=== PATIENT | female | born 1955 | race Caucasian/White ===

== ENCOUNTER 2020-01-03 22:16 | Emergency (ER) | payer MEDICARE, OTHER ==
[2020-01-03] MEDS ORDERED: Hydromorphone 1 mg/ml Ampule IV ONE (22:35)
[2020-01-03] MEDS ORDERED: Amidate 20 MG/10 ML IV STA (22:36)
[2020-01-03] MEDS ORDERED: Hydromorphone 1 mg/ml Ampule ONE (22:38)
[2020-01-03] MEDS ORDERED: Sodium Chloride 0.9% 1000 ML 1,000 ML ONE (22:41)
[2020-01-03] MEDS ORDERED: Sodium Chloride 0.9% 1000 ML 1,000 ML IV SCH (22:45)
[2020-01-03] MEDS ORDERED: Zofran 4 MG/2 ML VIAL IV ONE (22:57)
[2020-01-03] MEDS ORDERED: Zofran 4 MG/2 ML VIAL ONE (23:02)
--- NOTE | 2020-01-03 23:40 | ERPHSYRPT ---
- History of Present Illness Time Seen by Provider: 01/03/20 22:30 Source: patient Exam Limitations: no limitations Patient Subjective Stated Complaint: pt states when she got out of the golf cart , she rolled her rt ankle an heard a pop and had immediate pain Triage Nursing Assessment: pt alert and oriented, answers questions approp. pt back per wheelchair, transfers to stretcher with assist of 1, nwb on rt. respirations nonlabored. deformity noted to rt ankle with bruising and swelling present. pedal pulse wnl. cap refill wnl. pt reports some numbness to 1st digit. Physician History: In golf cart at [facility] when she stepped out she fell injuring right ankle. unable to bear wt. C/o deformity of ankle Method of Injury: fell Occurred: just prior to arrival Quality: sharpness Severity of Pain-Max: severe Severity of Pain-Current: severe Lower Extremities Pain: ankle: right (deformity, pulses and neuro intact) Modifying Factors: Improves With: nothing Associated Symptoms: unable to bear weight, snapping sensation, popping sensation Allergies/Adverse Reactions: adhesive tape Allergy (Mild, Verified 01/03/20 23:00) Rash codeine Adverse Reaction (Intermediate, Verified 01/03/20 23:00) Vomiting Hx Tetanus, Diphtheria Vaccination/Date Given: No Hx Influenza Vaccination/Date Given: No Hx Pneumococcal Vaccination/Date Given: No Immunizations Up to Date: No Travel Risk - International Travel Have you traveled outside of the country in past 3 weeks: No Have you or anyone close to you been diagnosed with or: No Do your reside in a community with a known COVID-19 case?: Yes If Yes where:: [facility] - Coronavirus Screening Has patient experienced Coronavirus symptoms: No - Review of Systems Constitutional: No Fever, No Chills Eyes: No Symptoms Ears, Nose, & Throat: No Symptoms Respiratory: No Cough, No Dyspnea Cardiac: No Chest Pain, No Edema, No Syncope Abdominal/Gastrointestinal: No Abdominal Pain, No Nausea, No Vomiting, No Diarrhea Genitourinary Symptoms: No Dysuria Musculoskeletal: Deformity, Joint Pain, Joint Swelling, No Back Pain, No Neck Pain Skin: No Rash Neurological: No Dizziness, No Focal Weakness, No Sensory Changes Psychological: No Symptoms Endocrine: No Symptoms All Other Systems: Reviewed and Negative - Past Medical History Pertinent Past Medical History: Yes Neurological History: No Pertinent History ENT History: No Pertinent History Cardiac History: Hypertension Respiratory History: No Pertinent History Endocrine Medical History: No Pertinent History Musculoskeletal History: No Pertinent History GI Medical History: No Pertinent History History: No Pertinent History Psycho-Social History: Depression Female Reproductive Disorders: No Pertinent History - Past Surgical History Past Surgical History: Yes Female Surgical History: Section Other Surgical History: cyst removed from back. c section x2 - Social History Smoking Status: Current every day smoker How long have you smoked: 40yrs Exposure to second hand smoke: Yes Drug Use: none Patient Lives Alone: No - Female History Hx Now: No - Nursing Vital Signs Nursing Vital Signs: Initial Vital Signs Temperature 97.8 F 01/03/20 22:20 Pulse Rate 64 01/03/20 22:20 Respiratory Rate 18 01/03/20 22:20 Blood Pressure 100/78 01/03/20 22:20 O2 Sat by Pulse Oximetry 99 01/03/20 22:20 Pain Scale Pain Intensity 10 - Physical Exam General Appearance: moderate distress, alert Eyes, Ears, Nose, Throat Exam: moist mucous membranes Neck Exam: non-tender, supple Cardiovascular/Respiratory Exam: chest non-tender, normal breath sounds, regular rate/rhythm, no respiratory distress Gastrointestinal/Abdominal Exam: non-tender, guarding Back Exam: normal inspection, No vertebral tenderness Ankle Exam: right ankle: deformity, ecchymosis, limited range of motion, pain, soft tissue tenderness, swelling DTR - Lower Extremities Exam: knee (R): 2+, knee (L): 2+ Neuro/Tendon Exam: normal sensation, normal motor functions, normal tendon functions, no evidence tendon injury Mental Status Exam: alert, oriented x 3, cooperative Skin Exam: normal color, warm, dry SpO2: 99 Procedures - Joint Reduction Joint Reduction Site: Right, ankle Conscious Sedation: Yes Reduction Attempts: 1 Pre-Procedure Neurovascular Exam: neurovascular intact, well perfused Post Procedure Neurovascular Exam: neurovascular intact, good alignment, changed from pre-exam Post Joint Reduction Film: triomalleolar fx Progress: Moderate sedation with dilaudid and etomidate. successful reduction and placement of splint. Pt referred to [facility] - Radiology Exams Right Ankle X-ray Interpretation: Interpreted by me, Other (initial xray trimalleolar fx dislocation r ankle. reduced successfuly) Ordered Tests: Active Orders 24 hr Category Date Time Status ANKLE (2V) Stat Exams 01/03/20 22:50 Taken ANKLE (2V) Stat Exams 01/03/20 23:15 Ordered Medication Summary Generic Name Dose Route Start Last Admin Trade Name Alexander PRN Reason Stop Dose Admin Sodium Chloride 1,000 mls @ 100 mls/hr 01/03/20 22:45 01/03/20 22:41 Sodium Chloride 0.9% 1000 Ml IV 02/02/20 22:44 100 mls/hr .Q10H BRIAN Administration Discontinued Medications Generic Name Dose Route Start Last Admin Trade Name Alexander PRN Reason Stop Dose Admin Etomidate 20 mg 01/03/20 22:36 01/03/20 23:07 Amidate 20 Mg/10 Ml IV 01/03/20 22:37 10 mg STAT STA Administration Hydromorphone HCl 1 mg 01/03/20 22:35 01/03/20 22:40 Hydromorphone 1 Mg/Ml Ampule IV 01/03/20 22:36 1 mg STAT ONE Administration Hydromorphone HCl Confirm 01/03/20 22:38 Hydromorphone 1 Mg/Ml Ampule Administered 01/03/20 22:39 Dose 1 mg .ROUTE .STK-MED ONE Ondansetron HCl 4 mg 01/03/20 22:57 01/03/20 23:03 Zofran 4 Mg/2 Ml Vial IV 01/03/20 22:58 4 mg STAT ONE Administration Ondansetron HCl Confirm 01/03/20 23:02 Zofran 4 Mg/2 Ml Vial Administered 01/03/20 23:03 Dose 4 mg .ROUTE .STK-MED ONE - Progress Progress: improved - Departure Departure Disposition: Home Clinical Impression: Fracture dislocation of ankle Condition: Stable Critical Care Time: No Instructions: Ankle Fracture (DC) Prescriptions: Hydrocodone/APAP 5-325 Tab^^^ [[place] 5-325 Tablet^^^] 1 tab PO Q6HPRN PRN #10 tablet MDD 6 PRN Reason: Pain
[2020-01-04 00:30] VITALS: BP 124/74; PULSE 66; O2SAT 98
--- NOTE | 2020-01-04 08:00 | XRAY ---
Indication: Pain following trauma. Comparison: None 2 view right ankle demonstrates talus dislocated posteriorly, mild displaced trimalleolar fracture, soft tissue swelling, and incidental tiny heel spurs. Remaining ankle unremarkable.
--- NOTE | 2020-01-04 08:02 | XRAY ---
Indication: Postreduction. Comparison: Taken earlier in the day 2 view right ankle demonstrates new overlying casting material with successful reduction of talus dislocation. Stable trimalleolar fractures, soft tissue swelling, and heel spurs.
== END 2020-01-04 00:20 | disposition home or self-care (01) ==
LOC: ED 22:16
DX: S82.851A Displaced trimalleolar fracture of right lower leg, initial encounter for closed fracture (principal); S92.131A Displaced fracture of posterior process of right talus, initial encounter for closed fracture; X50.9XXA Other and unspecified overexertion or strenuous movements or postures, initial encounter; W18.39XA Other fall on same level, initial encounter; Y93.89 Activity, other specified; Y92.89 Other specified places as the place of occurrence of the external cause
CPT/HCPCS: 27818; 73600; 96374; 96375; 99284; J1170; J2405